=== PATIENT | male | born 1965 | race Caucasian/White ===

== ENCOUNTER → 2024-01-18 12:58 | Outpatient (REF) | payer BC, OTHER, SELFPAY | LOC: RCS 12:58 | PROVIDERS: ATTENDING PHYSICIAN Internal Medicine Cardiovascular Disease; FAMILY PHYSICIAN Family Medicine Sports Medicine | DX: R06.09 Other forms of dyspnea (principal) | CPT/HCPCS: 93017 ==

== ENCOUNTER → 2025-09-08 13:52 | Outpatient (REF) | payer BC, OTHER, SELFPAY | LOC: RAD 13:52 | PROVIDERS: ATTENDING PHYSICIAN Family Medicine Sports Medicine | DX: M67.441 Ganglion, right hand (principal) | CPT/HCPCS: 73130 ==